=== PATIENT | male | born 1990 | race Two or more races ===

== ENCOUNTER 2024-06-04 14:00 | Emergency (ER) | payer MEDICAID ==
[~2024-06-04] VITALS: Ht 157.5 cm; Wt 75.5 kg
[2024-06-04 14:37] VITALS: BP 110/70; PULSE 74; RESP 16; TEMP 97.8; O2SAT 100
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
== END 2024-06-04 15:28 | disposition home or self-care (01) ==
LOC: ER 14:04
DX: S29.011A Strain of muscle and tendon of front wall of thorax, initial encounter (principal); R07.89 Other chest pain; F12.90 Cannabis use, unspecified, uncomplicated; V89.2XXA Person injured in unspecified motor-vehicle accident, traffic, initial encounter; Y93.89 Activity, other specified; Y92.410 Unspecified street and highway as the place of occurrence of the external cause; Y99.8 Other external cause status
CPT/HCPCS: 71046

== ENCOUNTER 2024-06-19 15:53 | Emergency (ER) | payer MEDICAID ==
[~2024-06-19] VITALS: Ht 162.6 cm; Wt 76.5 kg
[2024-06-19 16:20] VITALS: BP 126/65; PULSE 64; RESP 18; TEMP 98.1; O2SAT 97
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
== END 2024-06-19 16:59 | disposition home or self-care (01) ==
LOC: ER 15:53
DX: S01.91XD Laceration without foreign body of unspecified part of head, subsequent encounter (principal); F12.90 Cannabis use, unspecified, uncomplicated; Z48.02 Encounter for removal of sutures; X58.XXXD Exposure to other specified factors, subsequent encounter